=== PATIENT | male | born 1950 | race Caucasian/White ===

== ENCOUNTER 2018-08-18 13:37 | Emergency (ER) | payer MEDICARE, BC ==
[2018-08-18] MEDS ORDERED: Adacel (T-DAP) 0.5 ML VIAL ONE (14:07)
== END 2018-08-18 14:42 | disposition home or self-care (01) ==
LOC: SCSER 13:37
DX: S61.210A Laceration without foreign body of right index finger without damage to nail, initial encounter (principal); I10 Essential (primary) hypertension; W45.8XXA Other foreign body or object entering through skin, initial encounter; Z79.899 Other long term (current) drug therapy
CPT/HCPCS: 12002; 90471; 90715

== ENCOUNTER 2021-10-27 08:49 | Outpatient (CLI) | payer MEDICARE, BC ==
[2021-10-27 19:34] LABS: SARS-CoV-2 PCR by NAA Not Detected (NotDetected)
== END 2021-10-27 08:50 | disposition home or self-care (01) ==
LOC: LABBT 08:49
PROVIDERS: ATTEND Neurological Surgery
DX: Z01.818 Encounter for other preprocedural examination (principal); Z20.822 Contact with and (suspected) exposure to COVID-19
CPT/HCPCS: 93005; U0003; U0005; 93010

== ENCOUNTER 2021-11-01 07:13 | Day surgery (SDC) | payer MEDICARE, BC ==
[2021-10-27 12:23] VITALS: BMI 29.2
[2021-11-01] MEDS ORDERED: Scopolamine 1.5 mg/72 hour Patch ONE (09:50)
[2021-11-01] MEDS ORDERED: Fentanyl 100 MCG/2 ML VIAL ONE ×4 (10:24→12:56)
[2021-11-01] MEDS ORDERED: Lidocaine 2% Jelly 5 ML TUBE ONE (10:24)
[2021-11-01] MEDS ORDERED: Bupivacaine 0.25% HCL 30 ML VIAL ONE (10:26)
[2021-11-01] MEDS ORDERED: ceFAZolin 2 GM/Dextrose 50 ML IVPB ONE ×2 (10:44→15:03)
[2021-11-01] MEDS ORDERED: Rocuronium Bromide 10 MG/ML (10ML VIAL) ONE (11:01)
[2021-11-01] MEDS ORDERED: Lidocaine 1% PF 5 ML VIAL ONE (11:01)
[2021-11-01] MEDS ORDERED: PROPOFOL 200 MG/20 ML VIAL ONE (11:01)
[2021-11-01] MEDS ORDERED: ePHEDrine 50 MG/ML VIAL ONE (11:01)
[2021-11-01] MEDS ORDERED: Glycopyrrolate 0.2 MG/ML 5 ML SYRINGE ONE (11:01)
[2021-11-01] MEDS ORDERED: Dexamethasone 20 MG/5 ML VIAL ONE (11:01)
[2021-11-01] MEDS ORDERED: Tamsulosin HCl 0.4 MG CAP ONE (12:21)
[2021-11-01] MEDS ORDERED: Ondansetron PF 4 MG/2 ML Vial ONE (12:27)
[2021-11-01] MEDS ORDERED: HYDROcodone/Acetaminophen 5/325 mg Tablet ONE (14:56)
[2021-11-01] MEDS ORDERED: Sodium Chloride 0.9% 10 ML ONE (15:07)
== END 2021-11-01 15:45 | disposition home or self-care (01) ==
LOC: SDC 07:13
PROVIDERS: ATTEND Neurological Surgery
PROC: 01NB0ZZ Release Lumbar Nerve, Open Approach (ICD-10-PCS; principal; 2021-11-01)
DX: M48.062 Spinal stenosis, lumbar region with neurogenic claudication (principal); M54.16 Radiculopathy, lumbar region; I10 Essential (primary) hypertension; Z79.899 Other long term (current) drug therapy; Z98.1 Arthrodesis status
CPT/HCPCS: 76000; J0690; J1100; J2405; J2704; J3010; J3490; S0020

== ENCOUNTER 2023-05-06 11:46 | Outpatient (CLI) | payer MEDICARE, BC | END 2023-05-06 11:47 | disposition home or self-care (01) | LOC: SCSMRI 11:46 | PROVIDERS: ATTEND Clinical Nurse Specialist Medical-Surgical | DX: M51.06 Intervertebral disc disorders with myelopathy, lumbar region (principal); M47.16 Other spondylosis with myelopathy, lumbar region; M89.38 Hypertrophy of bone, other site; Z98.890 Other specified postprocedural states | CPT/HCPCS: 72148 ==

== ENCOUNTER 2024-09-07 10:29 | Outpatient (CLI) | payer MEDICARE, BC ==
[2024-09-07 11:56] LABS: Anion Gap 12 mmol/L (10-20); BUN (Urea Nitrogen) 18 mg/dL (8.4-25.7); Calc. Creatinine Clearance 0 mL/min (70-130); Calcium 9.4 mg/dL (7.8-10.44); Carbon Dioxide 28 mmol/L (23-31); Chloride 102 mmol/L (98-107); Estimated GFR 58; Glucose 97 mg/dL (83-110); Potassium 4.3 mmol/L (3.5-5.1); Sodium 138 mmol/L (136-145)
== END 2024-09-07 10:30 | disposition home or self-care (01) ==
LOC: LABBT 10:29
PROVIDERS: ATTEND Neurological Surgery
DX: Z01.818 Encounter for other preprocedural examination (principal); M48.061 Spinal stenosis, lumbar region without neurogenic claudication
CPT/HCPCS: 80048; 93005; 93010

== ENCOUNTER 2024-09-11 05:32 | Day surgery (SDC) | payer MEDICARE, BC ==
[2024-09-07 10:49] VITALS: BMI 29.2
[2024-09-11] MEDS ORDERED: Bupivacaine PF 0.5% 30 ML VIAL ONE (06:09)
[2024-09-11] MEDS ORDERED: Thrombin 5000 UNITS/5 ML VIAL ONE (06:09)
[2024-09-11] MEDS ORDERED: EPINEPHrine 1 MG/ML VIAL ONE (06:09)
[2024-09-11] MEDS ORDERED: CEFAZOLIN 2 GM VIAL ONE ×2 (06:44→11:04)
[2024-09-11] MEDS ORDERED: PROPOFOL 20 ML ONE ×2 (06:56→07:29)
[2024-09-11] MEDS ORDERED: Fentanyl 250 MCG/5 ML VIAL ONE (06:56)
[2024-09-11] MEDS ORDERED: Rocuronium Bromide 10 MG/ML (10ML VIAL) ONE (07:28)
[2024-09-11] MEDS ORDERED: Ondansetron PF 4 MG/2 ML Vial ONE ×2 (07:28→09:24)
[2024-09-11] MEDS ORDERED: Ketorolac Tromethamine 30 MG (1 mL) VIAL ONE (07:28)
[2024-09-11] MEDS ORDERED: Dexamethasone 20 MG/5 ML VIAL ONE (07:28)
[2024-09-11] MEDS ORDERED: PHENYLEPHRINE-NS 100 MCG/ML 10 ML SYRINGE ONE (07:28)
[2024-09-11] MEDS ORDERED: HYDROmorphone 0.5 MG/0.5 ML SYRINGE ONE ×2 (08:55→09:06)
[2024-09-11] MEDS ORDERED: fentaNYL PF 100 MCG/2 ML SYRINGE ONE (09:16)
[2024-09-11] MEDS ORDERED: Sodium Chloride 0.9% 100 ML ONE (11:04)
[2024-09-11] MEDS ORDERED: HYDROcodone/Acetaminophen 5/325 mg Tablet ONE (11:04)
== END 2024-09-11 12:55 | disposition home or self-care (01) ==
LOC: SDC 05:32
PROVIDERS: ATTEND Neurological Surgery
PROC: 0SG00AJ Fusion of Lumbar Vertebral Joint with Interbody Fusion Device, Posterior Approach, Anterior Column, Open Approach (ICD-10-PCS; principal; 2024-09-11)
DX: M48.062 Spinal stenosis, lumbar region with neurogenic claudication (principal); M54.16 Radiculopathy, lumbar region; I25.10 Atherosclerotic heart disease of native coronary artery without angina pectoris; N40.0 Benign prostatic hyperplasia without lower urinary tract symptoms; E78.5 Hyperlipidemia, unspecified; I10 Essential (primary) hypertension; M19.90 Unspecified osteoarthritis, unspecified site; G89.4 Chronic pain syndrome; Z98.1 Arthrodesis status; Z79.82 Long term (current) use of aspirin; Z79.899 Other long term (current) drug therapy
CPT/HCPCS: 20930; 20936; 22612; 22840; 63042; J0171; J0665; J1100; J1885; J2405; J2704; J3010